=== PATIENT | male | born 1970 | race Caucasian/White ===

== ENCOUNTER 2018-12-01 08:54 | Outpatient (CLI) | payer OTHER ==
[2018-12-01] MEDS ORDERED: MEPERIDINE 25 MG/ML SYR IVP PRN (09:49)
[2018-12-01] MEDS ORDERED: MIDAZOLAM 2 MG/2 ML VIAL IVP PRN (09:49)
[2018-12-01] MEDS ORDERED: FLUMAZENIL 0.5 MG/5 ML MDV IVP PRN (09:49)
[2018-12-01] MEDS ORDERED: ALTEPLASE 2 MG VIAL IVP PRN (09:49)
[2018-12-01] MEDS ORDERED: ceFAZolin 2 GM/DEXTROSE 100 ML IV ONE (09:49)
[2018-12-01] MEDS ORDERED: GLUCAGON HCL 1 MG VIAL IVP PRN (09:49)
[2018-12-01] MEDS ORDERED: fentaNYL 100 MCG/2 ML INJ IVP PRN (09:49)
[2018-12-01] MEDS ORDERED: PROTAMINE SULFATE 50 MG/5 ML VIAL IVP PRN (09:49)
[2018-12-01] MEDS ORDERED: HEPARIN 10,000 UNIT/10 ML MDV (1,000 UNIT/ML) IVP PRN (09:49)
[2018-12-01] MEDS ORDERED: NALOXONE HCL 0.4 MG/ML INJ IVP PRN (09:49)
[2018-12-01] MEDS ORDERED: NS 1,000 ML IV SCH (10:00)
--- NOTE | 2018-12-01 10:07 | PDPROPOC ---
Sedation Plan of Care ASA Classification: ASA 2 Mallampati Score: Class 2 Mallampati Reference Image:
--- NOTE | 2018-12-01 10:07 | PDRADPRE ---
Radiology History & Physical Indication for procedure: liver disease Home medications: None 04/27/10 [Last Taken Unknown] Allergies/Adverse Reactions: No Known Allergies Allergy (Verified 11/25/18 13:29) Mental status: A&Ox3
[2018-12-01 10:11] LABS: INR 1.09 (0.83-1.16); PROTIME(PATIENT) 14.3 SEC (12.0-15.0)
[2018-12-01] MEDS ORDERED: LIDOCAINE 1% 300 MG/30 ML SDV ONE (10:24)
[2018-12-01] MEDS ORDERED: oxyCODONE IR 5 MG TAB PO PRN (11:21)
[2018-12-01] MEDS ORDERED: ONDANSETRON 4 MG/2 ML VIAL IVP PRN (11:21)
--- NOTE | 2018-12-01 11:22 | PDRADPN ---
Radiology Procedure Note Date of Procedure: 12/01/18 Radiologist: Nigel Noel Anesthesia: IV Sedation Pre-op Diagnosis: elevated lfts Post-op Diagnosis: same Procedure: us guided non target liver biopsy Inf/Abcess present in the surg proc area at time of surgery?: No
[2018-12-01 14:16] VITALS: BP 143/84
== END 2018-12-01 14:16 | disposition home or self-care (01) ==
LOC: FIMAGING 08:54
PROVIDERS: ATTEND Physician Assistant
PROC: 0FB03ZX Excision of Liver, Percutaneous Approach, Diagnostic (ICD-10-PCS; principal; 2018-12-01 11:20)
DX: K73.9 Chronic hepatitis, unspecified (principal)
CPT/HCPCS: J0690; J2250; J3010